=== PATIENT | female | born 1980 | race African-American/Black ===

== ENCOUNTER 2016-11-15 01:29 | Emergency (ER) | payer OTHER ==
[~2016-11-15] VITALS: Ht 165.1 cm; Wt 76.0 kg
[2016-11-15] MEDS ORDERED: LEVETIRACETAM 500MG PREMIX 100 ML IV ONE (03:15)
[2016-11-15 04:28] VITALS: BP 110/84
== END 2016-11-15 04:32 | disposition home or self-care (01) ==
LOC: ER 02:09
DX: R56.9 Unspecified convulsions (principal); S09.90XA Unspecified injury of head, initial encounter; W19.XXXA Unspecified fall, initial encounter; Y93.89 Activity, other specified; Y92.89 Other specified places as the place of occurrence of the external cause; Y99.8 Other external cause status
CPT/HCPCS: 96365; 99284; J1953; Z7610